=== PATIENT | female | born 1955 | race Caucasian/White ===

== ENCOUNTER 2016-07-15 05:39 | Inpatient (IN) | payer SELFPAY ==
[2016-05-25 15:41] VITALS: BMI 38.7
[2016-07-15] MEDS ORDERED: TRANEXAMIC ACID 1,000 MG in NS 100 ML IV ONE ×4 (06:00)
[2016-07-15] MEDS ORDERED: DEXAMETHASONE 4 MG/ML VIAL ONE (06:03)
[2016-07-15] MEDS ORDERED: CEFAZOLIN 1 GM VIAL ONE (06:03)
[2016-07-15] MEDS ORDERED: ACETAMINOPHEN 325 MG/TAB TABLET PO ONE (06:03)
[2016-07-15] MEDS ORDERED: GABAPENTIN 300 MG CAP ONE (06:03)
[2016-07-15] MEDS ORDERED: OXYCODONE (OxyCONTIN) 20 MG TAB PO ONE (06:03)
[2016-07-15] MEDS ORDERED: Celecoxib 200 MG CAP PO ONE (06:03)
[2016-07-15] MEDS: BUPIVACAINE LIPOSOME/PF 1.3% 20 ML VIAL INF ONE ×2 (06:13→08:49)
[2016-07-15] MEDS ORDERED: hydrALAZINE 20 MG/ML VIAL IV PRN (06:19)
[2016-07-15] MEDS ORDERED: FENTANYL 100 MCG/2 ML VIAL IV PRN ×2 (06:19)
[2016-07-15] MEDS ORDERED: ONDANSETRON HCL 4 MG ODT TAB PO PRN (06:19)
[2016-07-15] MEDS ORDERED: HYDROmorphone 1 MG INJECTION IV PRN ×4 (06:19→11:39)
[2016-07-15] MEDS ORDERED: ONDANSETRON HCL 4 MG/2 ML VIAL IV PRN ×2 (06:19→11:39)
[2016-07-15] MEDS ORDERED: LABETALOL 20 MG/4 ML SYRINGE IV PRN (06:19)
[2016-07-15] MEDS ORDERED: MEPERIDINE 25 MG/ML TUBEX IV PRN (06:19)
[2016-07-15 06:38] LABS: BLOOD UREA NITROGEN 22 MG/DL (7-17); CALCIUM 9.1 MG/DL (8.4-10.2); CALCULATED OSMOLALITY 271 MOs/Kg (270-290); CHLORIDE 103 mEq/L (98-107); GLUCOSE 88 MG/DL (70-99); SODIUM LEVEL 140 mEq/L (137-146)
--- NOTE | 2016-07-15 06:44 | HIM.ANES ---
Anesthesia Evaluation & Plan Diagnoses: UNILATERAL PRIMARY OSTEOARTHRITIS, RIGHT HIP (07/15/16) Consented Procedure: RIGHT TOTAL HIP ARTHROPLASTY - Focused Review of Systems Cardiac History: Yes: Hx Afib/Aflutter, Hx Cardiac Disorders HEENT: Yes: Hx Vision Problem (PRESCRIPTION GLASSES), Other HEENT Problems Hx Other HEENT Surgery: T&A AGE 8 Gastrointestinal: Yes: Hx Colonoscopy (AGE 30'S) No: Hx Gastrointestinal Disorders Neurological/Musculoskeletal: Yes: Hx Back Pain No: Hx Neurological Disorders Psychological: No Hx Mental/Emotional Disorders Blood/Autoimmune: No: Hx AIDS, Hx Hepatitis (type) Smoking Status: Never smoker Hx Echocardiogram (date): Yes (AFIB, EF 45-50% MODERATE MITRAL VALVE CALCIFICATION, MILD TR) Other Surgical History: T&A AGE 8 BTL - Focused Physical Exam NPO since: 07/14/161999 Mallampati: Class II Thyromental Distance: Greater than 3 Neck: Full Range of Motion Dental: Normal - no significant findings Cardiovascular/Chest: Normal (RRR no mumurs or rubs.) Respiratory: Lungs clear. negative: Rhonchi, Wheezing Any problems with anesthesia, including nausea and vomiting?: No Any relatives with a history of Malignant Hyperthermia?: No Beta Shanon given (if appropriate): N/A Does the patient have a history of Motion Sickness-: No Other: Allergies Allergy/AdvReac Type Severity Reaction Status Date / Time No Known Allergies Allergy Verified 07/15/16 06:08 Home Medications Medication Instructions Recorded Last Taken Type Aspirin [Aspirin EC] 81 mg PO DAILY 05/25/16 07/14/16 History Ibuprofen 600 mg PO Q6 PRN 05/25/16 07/07/16 History Krill/Om-3/Dha/Epa/Phospho/Ast 1 cap PO DAILY 05/25/16 07/07/16 History [[place]-3 Krill Oil 300 mg Sfgl] Multivits,Ca,Minerals/Iron/FA 1 tab PO DAILY 05/25/16 07/07/16 History [Women's Daily Formula Caplet] Diltiazem HCl [Diltiazem 24Hr Cd] 180 mg PO DAILY 07/10/16 07/15/16 04:05 History Height and Weight Patient's height 5 ft 2 in Patient's weight 96.162 kg BMI 38.7 Vital Signs Temperature 98 F 07/15/16 06:15 Pulse Rate 86 07/15/16 06:15 Respiratory Rate 18 07/15/16 06:15 Blood Pressure 140/76 07/15/16 06:15 Pulse Oxygen Saturation 99 07/15/16 06:15 - Anesthetic Plan Anesthesia Type: General ASA Class: 2 -: I have examined this patient and reviewed the medical record. The patient has been assessed prior to anesthesia. Risks and benefits of anesthesia and anesthetic technique options have been discussed and all questions answered. The patient accepts the risk and desires me to proceed with the planned anesthetic.
[2016-07-15] MEDS ORDERED: BACITRACIN 50,000 UNITS VIAL ONE (06:58)
[2016-07-15] MEDS ORDERED: SUCCINYLCHOLINE 20 MG/1 ML INJ 10 ML MDV IV ONE (10:00)
[2016-07-15] MEDS ORDERED: FENTANYL 250 MCG/5 ML VIAL IV ONE (10:00)
[2016-07-15] MEDS ORDERED: ESMOLOL 100 MG/10 ML VIAL IV ONE (10:00)
[2016-07-15] MEDS ORDERED: NEOSTIGMINE 1 MG/1 ML (1:1000) INJ 10 ML MDV IM ONE (10:00)
[2016-07-15] MEDS ORDERED: DEXAMETHASONE 4 MG/ML VIAL IV ONE (10:00)
[2016-07-15] MEDS ORDERED: GLYCOPYRROLATE 1 MG VIAL IM ONE (10:00)
[2016-07-15] MEDS ORDERED: ONDANSETRON HCL 4 MG/2 ML VIAL IV ONE (10:00)
[2016-07-15] MEDS ORDERED: PROPOFOL 200 MG/20 ML VIAL IV ONE (10:00)
[2016-07-15] MEDS ORDERED: MIDAZOLAM 2 MG/2 ML VIAL IV ONE (10:00)
[2016-07-15] MEDS ORDERED: EPHEDrine 50 MG/ML VIAL IM ONE (10:00)
[2016-07-15] MEDS ORDERED: VECURONIUM 10 MG VIAL IV ONE (10:00)
--- NOTE | 2016-07-15 11:15 | HIMOPRPT ---
DATE OF PROCEDURE: DATE OF PROCEDURE: 07/15/16 PREOPERATIVE DIAGNOSIS: [Osteoarthritis right hip Obesity BMI 38] POSTOPERATIVE DIAGNOSIS: [Same] PROCEDURE: [Right] total hip arthroplasty SURGEON: Vern Mitchell D.O. QUALITY ASSURANCE ENGINEER: Zoraida Hitchcock PAC ANESTHESIA: GETA ESTIMATED BLOOD LOSS: 650 cc] COMPLICATIONS: none DRAINS: [hemovac] SPECIMENS: Femoral head FINDING: as above INDICATIONS FOR PROCEDURE: Right hip pain. Failure of conservative treatment DESCRIPTION OF PROCEDURE: IMPLANTS: [place] Size #[5] Accolade 2 Femoral stem. [127] degree neck angle Biolox delta [32mm -4 mm] ceramic head [46]mm Trident PSL acetabular shell [1 6.5mm 35mm] long acetabular screw [0 degree X3 poly liner. D Poly] Description: MAGALI ROSARIO is a 60-year-old female who [has a history of severe osteoarthritis in the right hip. She had failed other conservative measures and elected to proceed with total hip]. All risks, benefits, and alternatives to the planned surgery were discussed with the patient. The patient did understand these risks and elected to proceed. On the date of the procedure MAGALI was identified in the preop holding area. The [right] lower extremity was marked as the correct operative side. The patient was then taken to the operating room where successful induction of general anesthesia was performed. Patient was given Ancef 2 g IV as well as 1 g IV of Tranexamic acid prior to incisions being made. An additional 1 g IV of tranexamic acid was given at the time of wound closure. The patient was positioned in the lateral decubitus position with all bony prominences well padded and the [right] side up. The [right] lower extremity was then prepped and draped in sterile fashion. A prescrub was performed with chlorhexidine scrub brush and alcohol prior to Chloraprep. A time out was performed, again identifying the correct patient and the right side as the correct operative side. A 10 cm incision was then made centered over the greater trochanter laterally. Dissection was continued through the subcutaneous tissues to the ITB and then this was incised in line with the skin incision. A self-retaining Charnley retractor was placed and the abductor musculature was identified. The anterior 1/3 of the abductors were then released from the greater trochanter using electric cautery in modified Hardinge Approach fashion. The capsule next was identified. A superior retractor was placed at this point. Once adequate visualization of the capsule was obtained, the capsule was excised. At this point, the femur was dislocated and the leg was placed into the bag anteriorly. Our planned neck resection was marked and the oscillating saw was utilized to finish the osteotomy approximately 1 cm proximal to the lesser trochanter. Next the leg was brought back onto the table and acetabular retractors were placed. The base of the acetabulum was next cleared of soft tissue and the ligamentum teres was excised. Next A long-handled knife was utilized to excise the patient's acetabular labrum. We then began reaming once the cotyloid fossa was identified. We used a size [40] mm Reamer to medialize. The transverse acetabular ligament was used as a reference guide for our anteversion during reaming and cup placement. We then sequentially reamed up to a size [46] which did give adequate coverage and good bleeding cancellous bone and this did appear to be a good fit. A trial was placed. Size [46] mm PSL cup was chosen. This was placed in the correct amount of abduction and anteversion. [1 screw] was placed into the posterior superior hole measuring [35] mm in length. The cup was then thoroughly irrigated and the final acetabular liner 0 was malleted into position and seated. I checked this with a Berkey elevator. Attention was then turned to the femur. The neck elevating retractor was placed and a box osteotome was utilized to enter the proximal femur. Canal Finder was then utilized to enter the femoral canal. This was followed by sequential broaches being careful to lateralize. I broached up to a size 5 which was a good stable fit. A trial reduction was performed with a 32 mm +0 neck length femoral head high offset. This did lengthen the patient with excessive tension on the soft tissues. A 2nd trial reduction with a -4 femoral head was placed. This did restore the patient's leg lengths and the hip was stable throughout the range of motion. The trial components were then dislocated and the trial stem was removed. The final size [5 Accolade] 2 127 degree femoral stem was malleted into position. The trunion was thoroughly dried and the final Biolox ceramic head was placed. The hip was reduced and again placed through a range of motion and was stable. Leg lengths were restored. No impingement was noted. Full range of motion was obtained on the OR table. A Hemovac drain next was placed. The hip was thoroughly irrigated . The abductors were next repaired back to the trochanter through drill holes and a #5 FiberWire suture in a Elmer-Francisco Javier type fashion. This was reinforced proximally and distally with 2-0 Ethibond interrupted sutures. A running 0 Stratafix stitch was utilized to close the ITB in watertight fashion. The subcutaneous tissues were closed with interrupted zero and 2-0 Vicryl suture in layered fashion and the skin was closed with benson. A Prevena incisional wound vac was place and an abduction pillow was placed. The patient was then carefully transferred from the OR table to her hospital bed and was transferred to the PACU in stable condition. An additional level of difficulty was added to this case due to the patient's significant obesity and truncal obesity. An additional 30 minutes was spent for exposure and wound closure due to excessive soft tissues Zoraida CHÁVEZ was the operative warehouse assistant for this case. Due to the complex nature of the procedure, and under direct supervision, her assistance was necessary for patient positioning, prepping and draping, instrument management, soft tissue retraction, wound closure, application of dressings, and transfer of the patient.
[2016-07-15] MEDS ORDERED: BISACODYL 10 MG SUPP PR PRN (11:39)
[2016-07-15] MEDS ORDERED: DIPHENHYDRAMINE 50 MG/ML VIAL IV PRN (11:39)
[2016-07-15] MEDS ORDERED: DIPHENHYDRAMINE 25 MG CAP PO PRN (11:39)
[2016-07-15] MEDS ORDERED: MAGNESIUM HYDROXIDE 30 ML BOTTLE PO PRN (11:39)
[2016-07-15] MEDS ORDERED: Aluminum;Magnesium;Simethicone 30 ML UDC PO PRN (11:39)
[2016-07-15] MEDS ORDERED: SODIUM CHLORIDE 0.9% 3 ML FLUSH FLUSH PRN (11:39)
[2016-07-15] MEDS ORDERED: OXYCODONE HCL 5 MG TABLET PO PRN ×2 (11:39)
[2016-07-15] MEDS ORDERED: ZOLPIDEM TARTRATE 5 MG TAB PO PRN (11:39)
--- NOTE | 2016-07-15 11:54 | PCM.DCS92 ---
[id number] Present on Admission: No right Z96.641 - Presence of right artificial hip joint (2) Osteoarthritis of right hip Acute M16.11 - UNILATERAL PRIMARY OSTEOARTHRITIS, RIGHT HIP Present on Admission: Yes primary M16.11 - Unilateral primary osteoarthritis, right hip Discharge Disposition: Discharge w/ Home Health Discharge Condition: Stable Cognitive Discharge Status: Unimpaired Fuctional Discharge Status: Walker Assistance, Fall Risk, Recent lower extremety joint replacement Physician Follow up/Referrals: Vern Mitchell DO [Staff Physician] - 07/28/16 10:45 am Home Medications/ New Prescriptions: New Aspirin (OrangeEnteric Coated) [Ecotrin] 325 mg PO BIDWM #60 tablet Celecoxib (anti-inflammatory) [Celebrex] 200 mg PO DAILY #30 capsule Oxycodone Immediate Release [Oxycodone Immediate Release (OxyIR)] 5 mg PO Q4 PRN #60 tablet PRN Reason: MODERATE Pain Continue Multivits,Ca,Minerals/Iron/FA [Women's Daily Formula Caplet] 1 tab PO DAILY Krill/Om-3/Dha/Epa/Phospho/Ast [[place]-3 Krill Oil 300 mg Sfgl] 1 cap PO DAILY Diltiazem HCl [Diltiazem 24Hr Cd] 180 mg PO DAILY Discontinued Ibuprofen 600 mg PO Q6 PRN PRN Reason: Pain Aspirin [Aspirin EC] 81 mg PO DAILY Additional Instructions: Go to Dr Mitchell office on 07/20/16 after lunch to remove Prevena wound dressing on Post-op day #5 and replace with aquacel dressing. Outpatient PT on Wednesday07/21/16 at 2:15pm with Francisco Javier. DATE: 07/17/16 Post Hospital Stay Joint Precautions POSTERIOR Hip Joint Precautions For the safety of your new hip, you should follow these precautions, especially during the first three months after surgery. n DO use one or two pillows between your legs when sleeping, especially when you turn onto the non-operative side to rest. This will keep your surgery hip in a good position. n DO NOT cross your surgery leg over your other leg. n DO NOT turn your surgery leg inward, or allow knees to touch. See photo #1. n DO NOT bend your surgery hip more than 90 degrees. See photo #2. Also remember .. n DO NOT pivot or twist on the surgery leg. n DO NOT reach forward to the floor from a sitting position. See photo #3. n DO NOT sit on low chairs or low toilets. It is important that you sit with your hips even with or higher than your knees. Also, use a bedside commode. n DO NOT do any of the following activities until cleared by your surgeon: 1. Return to work 2. Drive a car 3. Participate in sports 4. Engage in sex 5. Take a tub bath Diet at Discharge: As Tolerated Activity: As Tolerated Call Office For: Worsening Symptoms, Wound is Draining Pus, Fever over 101 F, Pain Uncontrolled By Meds Discontinue use of:: Alcohol, All Illegal Substances, All Types of Tobacco - DC Summary Notes Hospital Course Note:: Discharge summary on patient named MAGALI ROSARIO admitted to [facility] on by . Date of discharge is 07/17/2016. Attending physician: Dr. Mitchell Procedure performed: Right total hip arthroplasty Condition on discharge: Stable Discharged to: home HPI: 60-year-old female with longstanding history of right hip pain secondary to underlying osteoarthritis having failed extensive conservative treatment including anti-inflammatories, Tylenol, rest, activity modification, home exercise program, cortisone injection and weight loss. Patient elected to have right total hip arthroplasty. Hospital course: Patient underwent right total hip arthroplasty on 07/15/2016 and was admitted for observation and physical therapy. Physical therapy was started postop day 0 with patient progressing well postop day 1 and postop day 2. Diet was advanced with bladder function intact. Pain well controlled with oral and IV medications. By post-op day 2 patient was doing well and ready for discharge. Wound Care Surgical Site: Yes Site Description (if applicable): right lateral hip May Shower Starting:: at discharge Remove Clear Dressing In How Many Days?: home health to remove Prevena on POD # 5 and replace with aquacel Medical Equipment (Order must still be written on paper): Walker Medication Instructions: Rx on Chart Continue Ice Packs/Ice Machine to Operative Area: Yes Activity as Tolerated: Yes Weight Bearing: As Tolerated Posterior Hip Precautions: YES Abduction Pillow: YES Current Dressing: Other (Prevena) Dressing Care: Keep Wound Clean & Dry, No Tub Baths, Do Not Change Dressing - Consults/Home Health Outpatient Consults: Home Health
[2016-07-15] MEDS ORDERED: Pharmacy Order Set Alert SCH (12:00)
[2016-07-15] MEDS ORDERED: NALOXONE 0.4 MG/ML AMPULE IV SCH (12:00)
[2016-07-15] MEDS ORDERED: Pharmacy Discontinue All Previous Acetaminophen Orders SCH (12:00)
[2016-07-15] MEDS ORDERED: Acetaminophen, Intravenous 1,000 MG/100 ML IVBOT IV ONE (12:30)
--- NOTE | 2016-07-15 13:04 | SC.ANESPOS ---
Post-Anesthesia Note LOC: Fully Awake Post-Anesthesia Assessment: Awake, Returned to Baseline, Hemodynamically Stable , Pain Control Adequate Phase I & II Recovery Complete: Yes Apparent Anesthesia Complication: No : N - Vital Signs Blood Pressure: 121/59 Pulse: 88 Resp Rate: 12 O2 Sat: 97 Temp: 96.8 F
[2016-07-15] MEDS: VITAMINS, MULTIPLE CAP PO SCH (14:02)
[2016-07-15] MEDS: NS 1,000 ML IV SCH ×2 (14:02→15:31)
[2016-07-15] MEDS: CALCIUM CARBONATE + VITAMIN D 500 MG TAB PO SCH ×2 (14:02→17:50)
--- NOTE | 2016-07-15 15:04 | DIRPT ---
CLINICAL DATA: Status post right CR EXAM: PELVIS - 1-2 VIEW COMPARISON: Intraoperative plain film from earlier same day. Also plain film of the right hip dated 05/07/2016. FINDINGS: Patient is status post right hip arthroplasty. Hardware appears adequately positioned. No surgical complicating feature seen. No acute osseous abnormality. IMPRESSION: Status post right hip arthroplasty. No surgical complicating feature seen. Electronically Signed By: Uriel Soto M.D. On: 07/15/2016 15:01
[2016-07-15] MEDS: Cefazolin 2gm/50 ml D5W 2 GM/50 ML RTU IV SCH ×2 (15:30→23:06)
[2016-07-15] MEDS ORDERED: Vaccine Screening Complete SCH (17:00)
--- NOTE | 2016-07-15 17:10 | DIRPT ---
CLINICAL DATA: Right total hip arthroplasty EXAM: OPERATIVE RIGHT HIP (WITH PELVIS IF PERFORMED) VIEWS TECHNIQUE: Fluoroscopic spot image(s) were submitted for interpretation post-operatively. COMPARISON: 05/07/2016 right hip radiographs. FINDINGS: Portable intraoperative radiograph of the right hip demonstrates interval right total hip arthroplasty, with well-positioned right proximal femoral and right acetabular prosthesis. No evidence of hip dislocation on this single frontal view. No osseous fracture. Expected soft tissue gas surrounding the right hip. IMPRESSION: Satisfactory appearance status post right total hip arthroplasty. Electronically Signed By: Panfilo Almeida M.D. On: 07/15/2016 13:31
[2016-07-15] MEDS: Celecoxib 200 MG CAP PO SCH (17:50)
[2016-07-15] MEDS: Acetaminophen, Intravenous 1,000 MG/100 ML IVBOT IV SCH (17:50)
[2016-07-15] MEDS: SODIUM CHLORIDE 0.9% 3 ML FLUSH FLUSH SCH (17:50)
[2016-07-15] MEDS: Aspirin (Orange Enteric Coated) 325 mg tab PO SCH (17:50)
[2016-07-15] MEDS: PANTOPRAZOLE 40 MG TAB PO SCH (17:50)
[2016-07-15] MEDS: OXYCODONE (OxyCONTIN) 10 MG TAB PO SCH (21:56)
[2016-07-16] MEDS: Acetaminophen, Intravenous 1,000 MG/100 ML IVBOT IV SCH ×3 (01:10→11:29)
[2016-07-16] MEDS: SODIUM CHLORIDE 0.9% 3 ML FLUSH FLUSH SCH ×2 (05:59→17:07)
[2016-07-16] MEDS: PANTOPRAZOLE 40 MG TAB PO SCH ×2 (06:00→17:07)
[2016-07-16] MEDS: Cefazolin 2gm/50 ml D5W 2 GM/50 ML RTU IV SCH (06:04)
[2016-07-16] MEDS ORDERED: NS 100 ML IV ONE (06:17)
[2016-07-16 07:15] LABS: BLOOD UREA NITROGEN 11 MG/DL (7-17); CALCIUM 8.7 MG/DL (8.4-10.2); CALCULATED OSMOLALITY 268 MOs/Kg (270-290); CHLORIDE 104 mEq/L (98-107); GLUCOSE 112 MG/DL (70-99); SODIUM LEVEL 139 mEq/L (137-146)
[2016-07-16] MEDS: DILTIAZEM HCL 120 MG CAPSULE.CR PO SCH ×2 (07:55→11:29)
[2016-07-16] MEDS ORDERED: Remove Transdermal Scopolamine Patch after 24 hours ONE (08:00)
[2016-07-16] MEDS: OMEGA-3-ACID ETHYL ESTERS 1000 MG CAP PO SCH (08:01)
[2016-07-16] MEDS: Celecoxib 200 MG CAP PO SCH ×2 (08:01→17:07)
[2016-07-16] MEDS: OXYCODONE (OxyCONTIN) 10 MG TAB PO SCH ×2 (08:01→20:24)
[2016-07-16] MEDS: Aspirin (Orange Enteric Coated) 325 mg tab PO SCH ×2 (08:01→17:07)
--- NOTE | 2016-07-16 08:54 | PCM.ORTHBL ---
- Subjective Hospital Day #: 1 Post Op Day: 1 (s/p right CR) Daily Assessment - Patient: Reports: No new complaints, Awake Alert Oriented x4 , Pain is less, Tolerating liquids well, Tolerating Regular Diet, Afebrile, Ambulating with Physical Therapist. Denies: Shortness of breath, Nausea, Vomiting - Objective / Physical Exam Vital Signs: Temperature: 98 F (07/16/16 06:42) HR: 78 (07/16/16 06:42)RR: 18 (07/16/16 06:42 ) BP: 106/58 (07/16/16 06:42)Pulse Ox: 99 (07/16/16 06:42) General: Alert, Oriented x3, Cooperative, No acute distress Musculoskeletal / Extremities: 2 plus Dorsalis Pedis Pulse, Dressing Clean/Dry/ Intact, Swelling (mild), Capillary Refill, Muscle Tone, FROM, Motor 5/5 throughout Neurological: Positive Sensation First Dorsal Web Space (right LE), Sensation to light touch intact, Dorsiflexion Intact, Plantarflexion Intact Skin: Warm,Dry and Intact, No rashes, No breakdown Laboratory/Diagnostics Reviewed: 07/16/16 05:40 07/16/16 05:40 - Assessment and Plan (1) S/P total hip arthroplasty Acute Z96.649 - PRESENCE OF UNSPECIFIED ARTIFICIAL HIP JOINT Present on Admission: No right Z96.641 - Presence of right artificial hip joint (2) Osteoarthritis of right hip Acute M16.11 - UNILATERAL PRIMARY OSTEOARTHRITIS, RIGHT HIP Present on Admission: Yes primary M16.11 - Unilateral primary osteoarthritis, right hip Plan: Patient is progressing well with PT. She will have 2 sessions today. Continue pain management and ASA 325mg BID. Will monitor and plan for possible d/c to home tomorrow if stable.
[2016-07-16] MEDS: NS 1,000 ML IV SCH (10:45)
[2016-07-16] MEDS: CALCIUM CARBONATE + VITAMIN D 500 MG TAB PO SCH ×2 (11:29→17:07)
[2016-07-16] MEDS: VITAMINS, MULTIPLE CAP PO SCH (11:29)
--- NOTE | 2016-07-16 11:38 | PCM.CARD ---
[id number] is on the chart. Current Assessment: No New Symptoms. negative: Chest Pain, Orthopnea, Palpitations, Shortness of Breath Vital Signs: Last Vital Signs Temp 98.6 F 07/16/16 09:15 Pulse 92 07/16/16 09:15 Resp 18 07/16/16 09:15 BP 111/60 07/16/16 09:15 Pulse Ox 98 07/16/16 09:15 Respiratory: Normal - CTA Jugular Vein Distention: None Pulse Rhythm: Irregular EKG Rhythm: Atrial Fibrillation (With a controlled apical pulse) Heart Sounds: negative: S1 & S2 (Variable S1), S3, Murmur (No edema) Lab/DI Results Reviewed: Selected Entries 07/16/16 09:15 Temperature 98.6 F Pulse Rate 92 Blood Pressure 111/60 Laboratory Tests 07/16/16 07/16/16 05:40 05:40 Hgb 11.2 L Potassium 5.3 H D Estimated GFR (MDRD) > 60 - Assessment/Plan (1) Atrial fibrillation Chronic I48.91 - UNSPECIFIED ATRIAL FIBRILLATION Present on Admission: Yes chronic I48.2 - Chronic atrial fibrillation Comment/Plan: Stable rate controlled, her chads 2 Vasc score is 1 and either aspirin anticoagulation is appropriate she will be seen my partner in the office to review this once she has recovered from his hospitalization but she has strong in her opinion not to be anticoagulated. She will continue current rate control medication and for completeness will check an ECG postoperatively. Please call the need for see her again during this hospitalization
[2016-07-17] MEDS: SODIUM CHLORIDE 0.9% 3 ML FLUSH FLUSH SCH (05:20)
[2016-07-17] MEDS: PANTOPRAZOLE 40 MG TAB PO SCH (05:20)
[2016-07-17 06:23] VITALS: BP 114/63; PULSE 98; TEMP 98
[2016-07-17 07:15] LABS: MPV 7.7 fL (7.4-10.4)
--- NOTE | 2016-07-17 07:38 | PCM.ORTHBL ---
- Subjective Hospital Day #: 2 Post Op Day: 2 (s/p right CR) Daily Assessment - Patient: Reports: No new complaints, Awake Alert Oriented x4 , Pain is less, Tolerating liquids well, Tolerating Regular Diet, Afebrile, Ambulating with Physical Therapist. Denies: Shortness of breath, Nausea, Vomiting - Objective / Physical Exam Vital Signs: Temperature: 98 F (07/17/16 06:00) HR: 98 (07/17/16 06:00)RR: 18 (07/17/16 06:00 ) BP: 114/63 (07/17/16 06:00)Pulse Ox: 96 (07/17/16 06:00) General: Alert, Oriented x3, Cooperative Musculoskeletal / Extremities: 2 plus Dorsalis Pedis Pulse, Dressing Clean/Dry/ Intact (Prevena), Tenderness (minimal around incision), Capillary Refill, Muscle Tone, Motor 5/5 throughout Neurological: Positive Sensation First Dorsal Web Space, Sensation to light touch intact, Dorsiflexion Intact, Plantarflexion Intact Skin: Warm,Dry and Intact, No rashes, No breakdown. negative: Erythema, Warmth Laboratory/Diagnostics Reviewed: 07/17/16 06:24 07/16/16 05:40 - Assessment and Plan (1) S/P total hip arthroplasty Acute Z96.649 - PRESENCE OF UNSPECIFIED ARTIFICIAL HIP JOINT Present on Admission: No right Z96.641 - Presence of right artificial hip joint (2) Osteoarthritis of right hip Acute M16.11 - UNILATERAL PRIMARY OSTEOARTHRITIS, RIGHT HIP Present on Admission: Yes primary M16.11 - Unilateral primary osteoarthritis, right hip Plan: Patient is progressing well. She will do the morning session of PT and likely be discharged home after that. Continue pain management. Continue ASA for DVT prophylaxis.
[2016-07-17] MEDS: Aspirin (Orange Enteric Coated) 325 mg tab PO SCH (07:59)
[2016-07-17] MEDS: OXYCODONE (OxyCONTIN) 10 MG TAB PO SCH (07:59)
[2016-07-17] MEDS: OMEGA-3-ACID ETHYL ESTERS 1000 MG CAP PO SCH (07:59)
[2016-07-17] MEDS: Celecoxib 200 MG CAP PO SCH (07:59)
--- NOTE | 2016-07-17 16:12 | CAPUEKG ---
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
== END 2016-07-17 10:30 | disposition home or self-care (01) | DRG 470 ==
LOC: SDC 05:39 → MPS3 13:44
PROVIDERS: ADMIT Orthopaedic Surgery; ATTEND Orthopaedic Surgery
PROC: 0SR903A Replacement of Right Hip Joint with Ceramic Synthetic Substitute, Uncemented, Open Approach (ICD-10-PCS; principal; 2016-07-15 07:15)
DX: M16.11 Unilateral primary osteoarthritis, right hip (principal); E66.9 Obesity, unspecified; I48.2 Chronic atrial fibrillation; Z79.899 Other long term (current) drug therapy; Z79.82 Long term (current) use of aspirin; Z68.39 Body mass index [BMI] 39.0-39.9, adult
CPT/HCPCS: 72170; 80048; 85027; 86850; 86900; 86901; 93005; 97161; 97165; C9290; G0237; J0131; J0330; J0690; J1100; J2250; J2405; J2710; J3010; J3490; J7030

== ENCOUNTER 2016-07-21 15:02 | Emergency (ER) | payer SELFPAY ==
[2016-07-21 15:02] VITALS: BMI 38.7
[2016-07-21 15:19] VITALS: TEMP 98.4
[2016-07-21] MEDS ORDERED: DILTIAZEM 25 MG/5 ML VIAL IV ONE (15:37)
--- NOTE | 2016-07-21 15:39 | EDPRACDOC ---
- General Information Chief Complaint: Arrhythmia Stated Complaint: IRREGULAR HEARTBEAT Time Seen by Provider: 07/21/16 15:20 Information Source: Patient Mode of Arrival: Wheelchair Home Medications: Home Medications Krill/Om-3/Dha/Epa/Phospho/Ast [[place]-3 Krill Oil 300 mg Sfgl] 1 cap PO DAILY Multivits,Ca,Minerals/Iron/FA [Women's Daily Formula Caplet] 1 tab PO DAILY Diltiazem HCl [Diltiazem 24Hr Cd] 180 mg PO DAILY 07/10/16 Celecoxib (anti-inflammatory) [Celebrex] 200 mg PO DAILY #30 capsule 07/17/16 Oxycodone Immediate Release [Oxycodone Immediate Release (OxyIR)] 5 mg PO Q4 PRN #60 tablet 07/17/16 Aspirin (OrangeEnteric Coated) [Ecotrin] 325 mg PO DAILY 07/21/16 Allergies/Adverse Reactions: Allergies Allergy/AdvReac Type Severity Reaction Status Date / Time No Known Allergies Allergy Verified 07/21/16 15:19 - History of Present Illness Onset: [employer] HPI: PT HAS A HX OF A.FIB THAT WAS RECENTLY DX'D. SHE SAID THAT SHE FORGOT TO TAKE HER "HEART MEDS" FOR THE PAST 3 DAYS BEFORE TODAY. SHE DID TAKE TODAY'S MEDS. PT SAID SHE HAD AN EPISODE YESTERDAY AND TODAY WHERE SHE BECAME DIZZY AND LIGHT HEADED. SHE PRESENTED TO PT TODAY AND SHE WAS IN A. FIB WITH RVR. THEY SENT HER HERE. Symptoms Started: Reports: Suddenly Relevant History: Reports: Arrhythmia Pulse is: Irregular, Rapid Worsens with: Reports: Nothing Associated signs & symptoms: Reports: Near-syncope Chest Pain Location: Reports: No Pain Pain Quality: Reports: None Pain Radiation: Reports: None ED Past Medical History - Patient Medical History Cardiac History: Reports: Atrial Fibrillation Musculoskeletal History: Reports: Arthritis Systemic History: Denies: Cancer Surgical History: Reports: Other (RIGHT HIP ORIF). Denies: Hysterectomy - Family Medical History Reports: Stroke (MOTHER CEREBRAL HEMORRHAGE AGE 62). Denies: Hypertension, Diabetes, Cancer, Cardiac Disorders - Social Medical History Smoking Status: Never smoker ETOH: None Substance Abuse: None Lives With: Spouse Lives In: Home EDM Review of Systems - Review of Systems ROS Negative Except as Marked: Yes All systems reviewed and were negative except as marked Cardiovascular: Palpitations - Physical Exam Constitutional: Alert (Awake), No apparent distress Oriented to: Time, Person, Place Last recorded Vital Signs: Last Vital Signs Temp 98.4 F 07/21/16 15:15 Pulse 96 07/21/16 15:15 Resp 20 07/21/16 15:15 BP 133/58 L 07/21/16 15:15 Pulse Ox 96 07/21/16 15:15 Oxygen Pulse Oxygen Saturation 96 O2 Device Room Air Oxygen Flow Rate Fraction of Inspired Oxygen ( FIO2) - HEENT Head: Normal ( normocephalic) Eye Exam: Normal (PERRL, EOMI, Sclera white) Oropharynx: Normal (Pharynx:Moist without exudate,Gums-no swelling) ENT EAC: Normal TMJ: Normal Nose: No Symptoms Reported (septum midline) Neck: Normal (FROM, trachea at midline) - Respiratory/Cardiovascular Respiratory: Normal - CTA Cardiovascular: Tachycardia, Irregular - GI Auscultation: Normal (NABS) Palpation: Normal (Soft,No rebound or guarding, non distended) Tenderness: Non tender Escalante's Sign: Negative - Musculoskeletal Back: Normal (Non-Tender) Extremities: Normal (Normal tone, Pulses 2+ No cyanosis or edema, FROM) - Integumentary Skin: Normal, Warm, Dry Lymphatics: Normal (no adenopathy) - Neurologic Memory Impaired: Normal Motor Function: Normal (Normal tone, Pulses 2+ No cyanosis or edema, FROM) Cranial Nerve: Normal (CN II-X11 intact sensation, strength 5/5) Cerebellar: Normal Mood Description: Normal Thought: Coherent Perception: Normal - Re-evaluation Re-evaluation 1 Re-evaluation Time: 16:54 (HR 78. PT FEELS GOOD.) - Results 07/21/16 16:00 07/21/16 16:00 - EKG EKG #1 Initial EKG Time: 15:07 -: Yes EKG interpreted by me Rate: bpm: 126 [place]: Normal Rhythm: Afib Block: None Hypertrophy: None ST: New, Lat, Ischemia Comparison: 07/15/16 - Diagnostic Imaging Chest Image interpreted by: Radiologist No acute cardiopulmonary process Decision Time to Discharge: 16:54 - Departure Yes I personally saw and evaluated the patient. Disposition: Home Condition: Fair Final Diagnosis: Atrial fibrillation with RVR Instructions: Atrial Fibrillation (ED) Education/Counseling Given To: Patient Education/Counseling Given Regarding: Diagnosis, Treatment, Follow Up Referrals: Amanda Sutherland MD [Primary Care Provider] - One Week Forms: ED Discharge Instructions Additional Instructions: MAKE SURE YOU TAKE YOUR MEDS DIRECTED.
--- NOTE | 2016-07-21 16:09 | DIRPT ---
CLINICAL DATA: Patient with palpitations and atrial fibrillation. EXAM: PORTABLE CHEST 1 VIEW COMPARISON: Chest radiograph 05/25/2016. FINDINGS: Stable enlarged cardiac and mediastinal contours. No consolidative pulmonary opacities. No pleural effusion or pneumothorax. Regional skeleton is unremarkable. IMPRESSION: No acute cardiopulmonary process. Electronically Signed By: Levi Ott M.D. On: 07/21/2016 16:06
[2016-07-21 16:17] LABS: AUTOMATED BASOPHIL 0.6 % (0-2); AUTOMATED EOSINOPHIL 2.4 % (0-5); AUTOMATED LYMPH 22.5 % (17-44); AUTOMATED MONOCYTE 9.3 % (3-10); AUTOMATED NEUTROPHIL 65.2 % (45-76); MPV 7.4 fL (7.4-10.4)
[2016-07-21 16:19] LABS: ALL NEG? NO
[2016-07-21 16:31] LABS: BLOOD UREA NITROGEN 18 MG/DL (7-17); CALC CORRECTED 9.9 MG/DL (8.4-10.2); CALCIUM 9.1 MG/DL (8.4-10.2); CALCULATED OSMOLALITY 271 MOs/Kg (270-290); CHLORIDE 102 mEq/L (98-107); GLUCOSE 100 MG/DL (70-99); SODIUM LEVEL 140 mEq/L (137-146); TOTAL PROTEIN 6.5 G/DL (6.3-8.2)
[2016-07-21 16:32] LABS: MDMA* NEG (NEGATIVE); METHAMPHETAMINES NEG (NEGATIVE); OXYCODONE *POSITIVE* (NEGATIVE)
[2016-07-21 16:33] LABS: LEUKOCYTES/URINE 2+ (NEGATIVE); NITRITE/URINE POS (NEGATIVE); URINE OCCULT BLOOD NEG (NEG/TRACE); WBC/URINE 40-50 (0-5)
[2016-07-21 16:47] LABS: FREE T3 4.23 pg/mL (2.77-5.27); FREE T4 1.22 ng/dL (0.78-2.19)
[2016-07-21 17:00] LABS: hTSH 3.95 uIU/mL (0.5-4.67)
[2016-07-21 17:02] VITALS: BP 101/56; PULSE 78
== END 2016-07-21 17:05 | disposition home or self-care (01) ==
LOC: ED 15:02
DX: I48.91 Unspecified atrial fibrillation (principal)
CPT/HCPCS: 36415; 71010; 80053; 80307; 81001; 84439; 84443; 84481; 84484; 85025; 85610; 85730; 93005; 96374; 99284; J3490